=== PATIENT | female | born 1955 | race Caucasian/White ===

== ENCOUNTER 2021-07-29 09:50 | Emergency (ER) | payer BC ==
[2021-07-29] MEDS ORDERED: Sodium Chloride 0.9% 10 ML Syringe FLUSH PRN (09:53)
[2021-07-29] MEDS ORDERED: Sodium Chloride 0.9% 2.5 ML Syringe FLUSH PRN (09:53)
--- NOTE | 2021-07-29 10:03 | EDM.PDOC ---
ED HPI GENERAL MEDICAL PROBLEM - General Chief Complaint: Chest Pain Stated Complaint: CHEST PAIN Time Seen by Provider: 07/29/21 09:55 Source of Information: Reports: Patient History Limitations: Reports: No Limitations - History of Present Illness INITIAL COMMENTS - FREE TEXT/NARRATIVE: HISTORY AND PHYSICAL: History of present illness: Patient is a 66-year-old female who presents to the emergency room with complaints of left posterior scapular/back pain x5 to 7 days. She states the pain fluctuates but is worse at nighttime and does occasionally radiate into her left shoulder. Currently is pain-free. She is concerned she may have a blood clot to her lung as she recently had the COVID-19 vaccination 2 weeks ago. As a preventative measure she has been taking aspirin every night. Patient denies any fever, chills, headache, change in vision, syncope or near syncope. Denies any anterior chest pain, shortness of breath or cough. Denies any abdominal pain, nausea, vomiting, diarrhea, constipation or dysuria. Patient has been eating and drinking appropriately. Review of systems: As per history of present illness and below otherwise all systems reviewed and negative. Past medical history: As per history of present illness and as reviewed below otherwise noncontributory. Surgical history: As per history of present illness and as reviewed below otherwise no ncontributory. Social history: See social history for further information Family history: As per history of present illness and as reviewed below otherwise noncontributory. Physical exam: General: Well developed and well nourished 66-year-old female. Alert and orientated x 3. Nontoxic in appearance and in no acute distress. Vital signs are stable and have been reviewed by me. Nursing notes were reviewed. HEENT: Atraumatic, normocephalic, pupils equal and reactive bilaterally, negative for conjunctival pallor or scleral icterus, mucous membranes moist, TMs normal bilaterally, throat clear, neck supple, nontender, trachea midline. No drooling or trismus noted. No meningeal signs. No hot potato voice noted. Lungs: Clear to auscultation bilaterally. No wheezes, rales, or rhonchi. Chest nontender. Normal work of breathing, no accessory muscles used. Heart: S1S2, regular rate and rhythm without overt murmur, gallops, or rubs. No JVD. No peripheral edema Abdomen: Soft, nondistended, nontender. Normoactive bowel sounds. Negative for masses or costovertebral tenderness. Skin: Intact, warm, dry. No lesions or rashes noted. Hematologic: No petechiae or purpra. Mucosa appropriate color and normal nail bed color and refill. Extremities: Atraumatic, moves all extremities per self without difficulty or deficits, negative for cords or calf pain. Neurovascular unremarkable. Neuro: Awake, alert, oriented. Cranial nerves II through XII unremarkable. Cerebellum unremarkable. Motor and sensory unremarkable throughout. Exam nonfocal. Psychiatric: Mood and affect are appropriate. Normal thought process. Answering questions appropriately. Please note that the patient was seen and evaluated during the 2019 SARS-CoV-2 novel coronavirus pandemic period. Community viral transmission is ongoing at time of this encounter and the emergency department is operating under pandemic response procedures. Medical Decision Making: Patient is a 66-year-old female who presents to the emergency room with complaints of left posterior scapular/back pain that occasionally radiates into her left shoulder over the past 5 to 7 days. She states she is concerned that she may have a blood clot due to recent vaccination of COVID-19. She states she has been doing some research on the COVID-19 vaccination and has read the risk of "blood clots". She has been taking aspirin but pain has not alleviated. She states that the pain is noticeable at night, currently pain-free. Her vital signs are stable. I do have low suspicion for PE. She is agreeable to a work- up at this time. My physical exam is unremarkable. No evidence of a shingles type rash. Low cardiac score. Lab work is unremarkable. Negative D-dimer. Negative troponin. Chest x-ray is unremarkable. She continues to be pain free. Her vital signs are stable. I have talked with the patient about today's findings, in addition to providing specific details for plan of care. Reassessment at the time of disposition demonstrates that the patient is in no acute distress. The patient is stable for discharge, counseling was provided and we discussed in great detail signs and symptoms that would prompt them to return to the Emergency Department. Medication, follow up and supportive care measures were reviewed and discussed. Voices understanding and is agreeable to plan of care. Denies any further questions or concerns at this time. Diagnostics: CBC, CMP, Troponin, EKG, CXR, D.Dimer Therapeutics: None Prescription: None Impression: Nonspecific chest pain Plan: 1. You were evaluated today on an emergent basis. Your cardiac work-up including D.Dimer, EKG, and chest x-ray are unremarkable. Continue monitoring your symptoms and follow up with your primary care provider. Your pain could be viral or muscular in nature. Gentle stretching and heat to the painful areas. 2. You can alternate Tylenol and ibuprofen as needed for pain and fever management. 3. We encourage you to follow up with your primary care provider and/or recommended specialist in the next few days for re-evaluation and further care/management. 4. If your symptoms should worsen, new symptoms develop or any of the signs and symptoms we discussed should arise please return to the emergency room or call 911 (if needed). Definitive disposition and diagnosis as appropriate pending reevaluation and review of above. Chest Pain Score (Numeric/FACES): 1 - Related Data Allergies Allergy/AdvReac Type Severity Reaction Status Date / Time No Known Allergies Allergy Verified 07/29/21 10:04 Home Meds: Home Meds . [No Known Home Meds] 07/29/21 [History] ED ROS GENERAL - Review of Systems Review Of Systems: Comprehensive ROS is negative, except as noted in HPI. ED EXAM, GENERAL - Physical Exam Exam: See Below (See dictation) Course - Vital Signs Last Recorded V/S: Last Vital Signs Temp 98.2 F 07/29/21 09:56 Pulse 80 07/29/21 09:56 Resp 20 07/29/21 09:56 BP 141/78 H 07/29/21 09:56 Pulse Ox 98 07/29/21 09:56 - Orders/Labs/Meds Orders: Active Orders 24 hr Category Date Time Status Cardiac Monitoring [RC] . DIRECTED Care 07/29/21 09:53 Active Sodium Chloride 0.9% [Saline Flush] Med 07/29/21 09:53 Active 10 ml FLUSH ASDIRECTED PRN Sodium Chloride 0.9% [Saline Flush] Med 07/29/21 09:53 Active 2.5 ml FLUSH ASDIRECTED PRN Saline Lock Insert [OM.PC] Stat Oth 07/29/21 09:53 Ordered Medication Orders Sodium Chloride (Sodium Chloride 0.9% 10 Ml Syringe) 10 ml FLUSH ASDIRECTED PRN PRN Reason: Keep Vein Open Last Admin: 07/29/21 10:15 Dose: 10 ml Documented by: MARYSOL Sodium Chloride (Sodium Chloride 0.9% 2.5 Ml Syringe) 2.5 ml FLUSH ASDIRECTED PRN PRN Reason: Keep Vein Open Last Admin: 07/29/21 10:15 Dose: 2.5 ml Documented by: MARYSOL Labs: Laboratory Tests 07/29/21 07/29/21 07/29/21 Range/Units 09:54 09:54 09:54 WBC 8.59 (4.0-11.0) K/uL RBC 4.80 (4.30-5.90) M/uL Hgb 15.3 (12.0-16.0) g/dL Hct 44.7 (36.0-46.0) % MCV 93.1 (80.0-98.0) fL MCH 31.9 (27.0-32.0) pg MCHC 34.2 (31.0-37.0) g/dL RDW Std Deviation 42.7 (28.0-62.0) fl RDW Coeff of Deepak 13 (11.0-15.0) % Plt Count 231 (150-400) K/uL MPV 12.90 H (7.40-12.00) fL Neut % (Auto) 72.6 (48.0-80.0) % Lymph % (Auto) 19.9 (16.0-40.0) % [place] % (Auto) 6.4 (0.0-15.0) % Eos % (Auto) 0.6 (0.0-7.0) % Baso % (Auto) 0.5 (0.0-1.5) % Neut # (Auto) 6.2 H (1.4-5.7) K/uL Lymph # (Auto) 1.7 (0.6-2.4) K/uL [place] # (Auto) 0.6 (0.0-0.8) K/uL Eos # (Auto) 0.1 (0.0-0.7) K/uL Baso # (Auto) 0.0 (0.0-0.1) K/uL Nucleated RBC % 0.0 /100WBC Nucleated RBCs # 0 K/uL D-Dimer, Quantitative 0.40 (0.0-0.50) mg/L FEU Sodium 142 (136-145) mmol/L Potassium 3.8 (3.5-5.1) mmol/L Chloride 104 (98-107) mmol/L Carbon Dioxide 25.4 (21.0-32.0) mmol/L BUN 15 (7.0-18.0) mg/dL Creatinine 1.3 H (0.6-1.0) mg/dL Est Cr Clr Drug Dosing 39.13 mL/min Estimated GFR (MDRD) 41.2 ml/min Glucose 115 H (74-106) mg/dL Calcium 9.2 (8.5-10.1) mg/dL Total Bilirubin 0.7 (0.2-1.0) mg/dL AST 21 (15-37) IU/L ALT 27 (14-63) IU/L Alkaline Phosphatase 60 (46-116) U/L Troponin I < 0.050 (0.000-0.056) ng/mL Total Protein 7.7 (6.4-8.2) g/dL Albumin 4.4 (3.4-5.0) g/dL Globulin 3.3 (2.6-4.0) g/dL Albumin/Globulin Ratio 1.3 (0.9-1.6) Meds: Medications Generic Name Dose Route Start Last Admin Trade Name Freq PRN Reason Stop Dose Admin Sodium Chloride 10 ml 07/29/21 09:53 07/29/21 10:15 Sodium Chloride 0.9% 10 Ml Syringe FLUSH 10 ml ASDIRECTED PRN Administration Keep Vein Open Sodium Chloride 2.5 ml 07/29/21 09:53 07/29/21 10:15 Sodium Chloride 0.9% 2.5 Ml Syringe FLUSH 2.5 ml ASDIRECTED PRN Administration Keep Vein Open Departure - Departure Time of Disposition: 11:03 Disposition: Home, Self-Care 01 Clinical Impression: Nonspecific chest pain Instructions: Nonspecific Chest Pain, Adult, [id number] Forms: ED Department Discharge Additional Instructions: The following information is given to patients seen in the emergency department who are being discharged to home. This information is to outline your options for follow-up care. We provide all patients seen in our emergency department with a follow-up referral. The need for follow-up, as well as the timing and circumstances, are variable depending upon the specifics of your emergency department visit. If you don't have a primary care physician on staff, we will provide you with a referral. We always advise you to contact your personal physician following an emergency department visit to inform them of the circumstance of the visit and for follow-up with them and/or the need for any referrals to a consulting specialist. The emergency department will also refer you to a specialist when appropriate. This referral assures that you have the opportunity for follow-up care with a specialist. All of these measure are taken in an effort to provide you with optimal care, which includes your follow-up. Under all circumstances we always encourage you to contact your private physician who remains a resource for coordinating your care. When calling for follow-up care, please make the office aware that this follow-up is from your recent emergency room visit. If for any reason you are refused follow-up, please contact the [facility] Emergency Department at and asked to speak to the emergency department charge nurse. [facility] [address] [place] [id number] [place] [id number] Thank you for choosing the [facility] emergency department in [place] for your medical needs today. It was a pleasure caring for you. Today you were seen in the emergency department for chest/back pain. 1. You were evaluated today on an emergent basis. Your cardiac work-up including D.Dimer, EKG, and chest x-ray are unremarkable. Continue monitoring your symptoms and follow up with your primary care provider. Your pain could be viral or muscular in nature. Gentle stretching and heat to the painful areas. 2. You can alternate Tylenol and ibuprofen as needed for pain and fever management. 3. We encourage you to follow up with your primary care provider and/or recommended specialist in the next few days for re-evaluation and further care/management. 4. If your symptoms should worsen, new symptoms develop or any of the signs and symptoms we discussed should arise please return to the emergency room or call [phone] (if needed). Sepsis Event Note (ED) - Focused Exam Vital Signs: Vital Signs Temp Pulse Resp BP Pulse Ox 07/29/21 09:56 98.2 F 80 20 141/78 H 98 - My Orders Last 24 Hours: My Active Orders 07/29/21 09:53 Cardiac Monitoring [RC] . DIRECTED Sodium Chloride 0.9% [Saline Flush] 10 ml FLUSH ASDIRECTED PRN Sodium Chloride 0.9% [Saline Flush] 2.5 ml FLUSH ASDIRECTED PRN Saline Lock Insert [OM.PC] Stat - Assessment/Plan Last 24 Hours: My Active Orders 07/29/21 09:53 Cardiac Monitoring [RC] . DIRECTED Sodium Chloride 0.9% [Saline Flush] 10 ml FLUSH ASDIRECTED PRN Sodium Chloride 0.9% [Saline Flush] 2.5 ml FLUSH ASDIRECTED PRN Saline Lock Insert [OM.PC] Stat
[2021-07-29 10:26] LABS: BLOOD UREA NITROGEN,BUN 15 mg/dL (7.0-18.0); CARBON DIOXIDE,CO2 25.4 mmol/L (21.0-32.0); CHLORIDE,CL 104 mmol/L (98-107); GLUCOSE RANDOM 115 mg/dL (74-106); POTASSIUM,K 3.8 mmol/L (3.5-5.1); SODIUM,NA 142 mmol/L (136-145)
--- NOTE | 2021-07-29 10:46 | PCM.EKG ---
#1 Interpretation EKG Date: 07/29/21 Time: 09:50 Rhythm: NSR Rate (Beats/Min): 70 [place]: Normal P-Wave: Present QRS: Normal ST-T: Normal QT: Normal Comparison: NA - No Prior EKG EKG Interpretation Comments: Sinus Rhythm
--- NOTE | 2021-07-29 10:59 | CR ---
INDICATION: Chest pain. TECHNIQUE: Upright portable AP image of the chest. COMPARISON: None. FINDINGS: Lungs clear. No pleural effusion or pneumothorax. Heart size and pulmonary vasculature within normal limits. No obvious rib fracture or other significant osseous abnormality. IMPRESSION: Negative chest. Dictated by Torsten Haynes MD @ 07/29/2021 10:57:34 AM (Electronically Signed)
== END 2021-07-29 11:14 | disposition home or self-care (01) ==
LOC: MW.ED 09:50
DX: R07.9 Chest pain, unspecified (principal)
CPT/HCPCS: 36415; 71045; 71045-26; 80053; 84484; 85025; 85379; 93005; 99285-25